=== PATIENT | male | born 1955 | race Caucasian/White ===

== ENCOUNTER 2016-08-09 11:55 | Day surgery (SDC) | payer BC ==
[~2016-08-09 11:55] MED LIST: LIDOCAINE 2% MDV (20MG/ML) 20ML VIAL IV ONE; MIDAZOLAM HCL 2MG/2ML VIAL IV ONE; PROPOFOL 10 MG/ML VIAL IV ONE
[2016-08-09] MEDS ORDERED: LIDOCAINE 2% MDV (20MG/ML) 20ML VIAL IV ONE (14:00)
--- NOTE | 2016-08-15 10:20 | Operative Note ---
DATE OF SURGERY: 08/09/2016 SURGEON: Minh Shahid MD OPERATION: COLONOSCOPY. INDICATIONS: This is a 60-year-old male with average risk for colorectal cancer who presented for screening colonoscopy. POSTOPERATIVE DIAGNOSES: 1. Left-sided diverticulosis. 2. A 6 mm descending colon polyp that was removed by cold snare. 3. Grade 1 internal hemorrhoids. ANESTHESIA: Sedation is per Anesthesia. Pulse oximetry was monitored throughout the procedure to maintain O2 saturation of 90% or greater. Supplemental oxygen was administered via nasal cannula. Cardiac and vital signs were monitored throughout the duration of the procedure, and they were stable. The procedure of colonoscopy and risks and benefits of the procedure, including the risk of bleeding and perforation, among others, were explained to the patient who voiced understanding and agreed to have the procedure done. Physical examination was performed, and the patient was found stable for sedation. PROCEDURE: The patient was placed in the left lateral position. Sedation was initiated. A digital rectal exam was performed and showed some mild external hemorrhoids with no palpable rectal masses. An Olympus PCF-180AL colonoscope was then inserted into the rectum under direct visualization. It was advanced to the cecum without difficulty. The ileocecal valve and appendiceal orifice were identified and photographed. The colonic mucosa was carefully examined upon introduction of the colonoscope. There were scattered diverticula noted in the sigmoid and descending colon. There were no other lesions noted. The colonoscope was then withdrawn while carefully examining the colonic mucosal surfaces. In the ascending colon was a 6 mm sessile polyp that was noted and was removed by cold snare. There were no other lesions noted in the ascending colon, transverse colon, descending colon, or sigmoid colon. In the rectum, retroflexion was performed and grade 1 internal hemorrhoids were noted. The colonoscope was then withdrawn and the procedure was terminated. The patient tolerated the procedure well without any immediate complications. She remained with stable vital signs and was transferred to the recovery room. RECOMMENDATIONS: 1. The patient should be on a high-fiber diet. 2. The patient is to have a repeat colonoscopy for surveillance in 3 or 5 or 10 years depending on the histology of the polyps. Thank you for allowing me to participate in the care of your patient. Minh Shahid MD CC: Dr. Ramy MARADIAGA
== END 2016-08-09 14:53 | disposition home or self-care (01) ==
LOC: HOP 11:55
PROVIDERS: ATTEND Internal Medicine Gastroenterology
DX: Z12.11 Encounter for screening for malignant neoplasm of colon (principal); D12.2 Benign neoplasm of ascending colon; E78.00 Pure hypercholesterolemia, unspecified; K64.0 First degree hemorrhoids

== ENCOUNTER 2016-11-29 07:10 | Day surgery (SDC) | payer BC ==
[~2016-11-29 07:10] MED LIST changes: +ACETAMINOPHEN 1,000 MG/100 ML BTL IV ONE; -LIDOCAINE 2% MDV (20MG/ML) 20ML VIAL IV ONE; -MIDAZOLAM HCL 2MG/2ML VIAL IV ONE; -PROPOFOL 10 MG/ML VIAL IV ONE
[2016-11-29] MEDS ORDERED: ROPIVACAINE HCL (NAROPIN) /PF 5MG/ML 20ML VIAL IV ONE (14:55)
[2016-11-29] MEDS ORDERED: DEXAMETHASONE 4 MG/ML 1ML VIAL IVP ONE (14:55)
[2016-11-29] MEDS ORDERED: KETOROLAC 30 MG/ML VIAL IVP ONE (14:58)
[2016-11-29] MEDS ORDERED: LIDOCAINE 2% MDV (20MG/ML) 20ML VIAL IV ONE (14:58)
[2016-11-29] MEDS ORDERED: FENTANYL PF 100MCG/2ML VIAL IV ONE (14:58)
[2016-11-29] MEDS ORDERED: ONDANSETRON HCL IV 4 MG/2 ML VIAL IVP ONE (14:58)
[2016-11-29] MEDS ORDERED: MIDAZOLAM HCL 2MG/2ML VIAL IV ONE (14:58)
[2016-11-29] MEDS ORDERED: SEVOFLURANE 250 ML INH ONE (14:58)
[2016-11-29] MEDS ORDERED: PROPOFOL 10 MG/ML VIAL IV ONE (15:00)
--- NOTE | 2016-11-29 16:53 | Operative Note ---
DATE OF SURGERY: 11/29/2016 Surgeon: Mike Key DO PREOPERATIVE DIAGNOSES: 1. Trigger finger of the right middle finger. 2. Right finger of the right little finger. POSTOPERATIVE DIAGNOSES: 1. Trigger finger of the right middle finger. 2. Right finger of the right little finger. OPERATION: 1. Tenotomy A1 elis, right middle finger. 2. Tenotomy A1 elis, right little finger using 3.5 loop magnification. DESCRIPTION OF PROCEDURE: This 61-year-old male was taken to the operating room, placed in the supine position on the operating room table where general anesthesia was induced. The right upper extremity was elevated. It was prepped with Hibiclens and draped in the usual sterile fashion. It was exsanguinated and the tourniquet inflated to 250 mmHg. We then made a longitudinal incision overlying the head of the 3rd metacarpal on the ventral surface of the hand, and dissection was carried down through the skin and subcutaneous tissue. Total length of the incision approximately 1 to 1.5 cm. The proximal edge of the A1 elis was easily identified. Then with the elis under direct vision. It was incised from its proximal to its distal margin under direct vision. The tendon was then flexed and extended. The sublimis tendon was identified to have a nodularity at the proximal edge of the A1 elis. This was fusiform in shape. The tendon was otherwise intact and normal. The wound was irrigated. Hemostasis obtained with electrocautery and closed with interrupted 6-0 nylon suture. We then directed our attention to the little finger, and a similar incision was made vertically overlying the 5th metacarpal head on the palmar surface of the hand. Incision was carried down through the skin and subcutaneous tissue. The proximal edge of the A1 elis was identified and then the A1 elis split from its proximal to its distal margin under direct vision. Nodularity of the sublimis tendon of the little finger was also identified and the tendon also appeared to be intact here as well. Some mild inflammation was noted in the tenosynovium of the little finger. The wound was irrigated with lactated Ringer's solution and hemodialysis obtained with electrocautery. It was then closed with interrupted 6-0 nylon suture. Sterile dressings were applied. The patient was taken to the recovery room in satisfactory condition. CC: Dr. Ramy MARADIAGA
== END 2016-11-29 09:45 | disposition home or self-care (01) ==
LOC: SUR 07:10
PROVIDERS: ATTEND Orthopaedic Surgery
DX: M65.331 Trigger finger, right middle finger (principal); M65.351 Trigger finger, right little finger; E78.00 Pure hypercholesterolemia, unspecified; J43.9 Emphysema, unspecified
CPT/HCPCS: 26055 ×2; 64450; 01810; J1885; J2405; J3010; J2795; 76942

== ENCOUNTER 2016-12-27 10:11 | Day surgery (SDC) | payer BC ==
[2016-12-27] MEDS ORDERED: LIDOCAINE 2% MDV (20MG/ML) 20ML VIAL IV ONE ×2 (14:14→14:15)
[2016-12-27] MEDS ORDERED: FENTANYL PF 100MCG/2ML VIAL IV ONE (14:15)
[2016-12-27] MEDS ORDERED: MIDAZOLAM HCL 2MG/2ML VIAL IV ONE (14:15)
[2016-12-27] MEDS ORDERED: PROPOFOL 10 MG/ML VIAL IV ONE (14:15)
--- NOTE | 2016-12-30 10:20 | Operative Note ---
DATE OF SURGERY: 12/27/2016 Surgeon: Mike Key DO PREOPERATIVE DIAGNOSIS: Trigger finger of the left little finger. POSTOPERATIVE DIAGNOSIS: Trigger finger of the left little finger. OPERATION: Tenotomy of the A1 elis of the left little finger using 3.5 loop magnification. DESCRIPTION OF PROCEDURE: This 61-year-old male was taken to the operating room and placed in the supine position on the operating room table. Assisted local anesthesia was used, 1% Xylocaine plain was used as a local anesthetic. After prepping and then draping in the usual sterile fashion, 1% Xylocaine was injected into the area overlying the 5th metacarpal head on the palmar surface of the hand. A longitudinal incision was made in line with the sublimis tendon at the proximal edge of the A1 elis. Blunt and sharp dissection was carried down to the proximal edge of the A1 elis which was easily identified. We then, with the neurovascular structures protected, incised the elis from its proximal to its distal margin under direct vision. Once it was completely released, the finger was taken through range of motion with no impingement being identified. No catching or locking was identified. The wound was irrigated and the wound subsequently closed with interrupted 6-0 nylon suture. Sterile dressings were applied, and the patient taken to the recovery room in satisfactory condition. GROSS PATHOLOGY: This patient demonstrated dilation of the sublimis tendon with a bulbous appearance catching in the A1 elis, which was incised in the manner described above. ASHWINI
== END 2016-12-27 12:00 | disposition home or self-care (01) ==
LOC: SUR 10:11
PROVIDERS: ATTEND Orthopaedic Surgery
DX: M65.352 Trigger finger, left little finger (principal); E78.00 Pure hypercholesterolemia, unspecified
CPT/HCPCS: 26055; 01810; J3010

== ENCOUNTER 2017-11-20 06:59 | Day surgery (SDC) | payer BC ==
[2017-11-20] MEDS ORDERED: SEVOFLURANE 250 ML INH ONE (07:00)
[2017-11-20] MEDS ORDERED: LIDOCAINE 1% MDV (10MG/ML) 20ML VIAL SQ ONE (07:00)
[2017-11-20] MEDS ORDERED: HYDROCODONE/APAP 5/325MG TABLET PO ONE (07:00)
[2017-11-20] MEDS ORDERED: KETOROLAC 30 MG/ML VIAL IVP ONE (07:00)
[2017-11-20] MEDS ORDERED: *PACU ONLY* KETAMINE HCL 10 MG/ML (20ML) VIAL IV ONE (07:00)
[2017-11-20] MEDS ORDERED: PROPOFOL 10 MG/ML VIAL IV ONE (07:00)
--- NOTE | 2017-11-21 10:30 | Operative Note ---
DATE OF SURGERY: 11/20/2017 Surgeon: Mike Key DO PREOPERATIVE DIAGNOSIS: Trigger finger of the left middle finger. POSTOPERATIVE DIAGNOSIS: Trigger finger of the left middle finger. OPERATION: Tenotomy of the A1 elis left middle finger using 3.5 loop magnification. DESCRIPTION OF PROCEDURE: This 62-year-old male was taken to the operating room and placed in the supine position on the operating room table. General anesthetic was administered. The left upper extremity was elevated. It was prepped with Hibiclens and draped in the usual sterile fashion. An incision was made in the palm overlying the head of the 3rd metacarpal dissecting down through the skin and subcutaneous tissue. Total length of the incision approximately 1.5 cm. The proximal edge of the A1 elis was easily identified. Then under direct vision, it was split from its proximal to its distal margin. Under direct vision, the tenosynovium was somewhat thickened. The tendon demonstrated a nodular area at the proximal edge of the A1 elis and this then passed freely with flexion/extension of the finger with no evidence of impingement. The wound was irrigated and hemostasis obtained with the electrocautery and the wound closed with interrupted 6-0 nylon suture. Sterile dressings were applied and the patient taken to the recovery room in satisfactory condition. CC: DO ASHWINI Zaidi
== END 2017-11-20 09:20 | disposition home or self-care (01) ==
LOC: SUR 06:59
PROVIDERS: ATTEND Orthopaedic Surgery
DX: M65.332 Trigger finger, left middle finger (principal); E78.00 Pure hypercholesterolemia, unspecified
CPT/HCPCS: 26055; 01810; J1885

== ENCOUNTER 2018-05-19 05:46 | Day surgery (SDC) | payer BC ==
[2018-05-19] MEDS ORDERED: SEVOFLURANE 250 ML INH ONE (05:47)
[2018-05-19] MEDS ORDERED: PROPOFOL 10 MG/ML VIAL IV ONE (05:47)
[2018-05-19] MEDS ORDERED: DEXAMETHASONE 4 MG/ML 1ML VIAL IVP ONE (05:47)
[2018-05-19] MEDS ORDERED: LIDOCAINE 2% MDV (20MG/ML) 20ML VIAL IV ONE (05:47)
[2018-05-19] MEDS ORDERED: HYDROCODONE/APAP 5/325MG TABLET PO ONE (05:47)
[2018-05-19] MEDS ORDERED: MIDAZOLAM HCL 2MG/2ML VIAL IV ONE (05:47)
[2018-05-19] MEDS ORDERED: FENTANYL PF 100MCG/2ML VIAL IV ONE (05:47)
[2018-05-19] MEDS ORDERED: ONDANSETRON HCL IV 4 MG/2 ML VIAL IVP ONE (05:47)
[2018-05-19] MEDS ORDERED: ACETAMINOPHEN 1,000 MG/100 ML BTL IV ONE (06:00)
--- NOTE | 2018-05-20 12:40 | Operative Note ---
DATE OF SURGERY: 05/19/2018 Surgeon: Mike Key DO PREOPERATIVE DIAGNOSES: 1. Right trigger thumb. 2. Trigger finger right index finger. POSTOPERATIVE DIAGNOSES: 1. Right trigger thumb. 2. Trigger finger right index finger. OPERATION: 1. Tenotomy of the A1 elis of the right thumb. 2. Tenotomy of the A1 elis of the right index finger using 3.5 loop magnification. DESCRIPTION OF PROCEDURE: This 62-year-old male was taken to the operating room and placed in the supine position on the operating room table where general anesthesia was induced. The right upper extremity was elevated. It was prepped with Hibiclens and draped in the usual sterile fashion. It was exsanguinated and the tourniquet inflated to 250 mmHg. The index finger was approached first by making an incision overlying the neck of the second metacarpal on the palmar surface of the hand. Approximately 1 to 1.5 cm incision was made dissecting down through the skin and subcutaneous tissue. Hemostasis obtained with the electrocautery. The proximal edge of the A1 elis was easily identified and then under direct vision, the elis was split from its proximal to its distal margin to free up the flexor tendons. The nodularity of the sublimis tendon was identified and freely moved through the tendon sheath without any impingement after it had been incised. The wound was irrigated and closed with interrupted 6-0 nylon suture. We then directed our attention to the right thumb and an incision was made in the flexor crease of the MCP joint of the right thumb, and the radial sensory nerve was easily identified and the proximal edge of the A1 elis identified and the nerve safely retracted to expose the proximal edge of the elis, which was then split from its proximal to its distal margin under direct vision. Nodularity of the FPL was identified and was freely passing through the canal once it had been incised. The wound was irrigated and closed with interrupted 6-0 nylon suture. Sterile dressings were applied and the patient was taken to the recovery room in satisfactory condition. GROSS PATHOLOGY: This patient demonstrated nodularity of the sublimis tendon in the index finger as well as the FPL. There was some tenosynovitis of the FPL as well which was incised. CC: DO ASHWINI Zaidi
== END 2018-05-19 09:18 | disposition home or self-care (01) ==
LOC: SUR 05:46
PROVIDERS: ATTEND Orthopaedic Surgery
DX: M65.311 Trigger thumb, right thumb (principal); M65.321 Trigger finger, right index finger; J44.9 Chronic obstructive pulmonary disease, unspecified; E78.00 Pure hypercholesterolemia, unspecified; I25.10 Atherosclerotic heart disease of native coronary artery without angina pectoris; Z95.1 Presence of aortocoronary bypass graft; G62.9 Polyneuropathy, unspecified
CPT/HCPCS: 26055 ×2; 01810; J2405; J3010